=== PATIENT | female | born 1975 | race American Indian/Alaskan Native ===

== ENCOUNTER 2017-10-20 02:20 | Emergency (ER) | payer SELFPAY ==
[2017-10-20 02:34] VITALS: BP 154/88
== END 2017-10-20 04:31 | disposition left against medical advice (07) ==
LOC: ED 02:20
DX: R09.89 Other specified symptoms and signs involving the circulatory and respiratory systems (principal); Z53.21 Procedure and treatment not carried out due to patient leaving prior to being seen by health care provider